=== PATIENT | male | born 1965 | race Hispanic/Latino ===

== ENCOUNTER → 2024-05-19 | Day surgery (SDC) | payer OTHER ==
[2024-05-12 11:14] LABS: ANION GAP 17.9 mmol/L (8-16); CALCIUM 9.7 mg/dL (8.4-10.2); CREATININE, SERUM 0.77 mg/dL (0.72-1.25); POTASSIUM 3.9 mmol/L (3.5-5.1)
[~2024-05-19] MED LIST: ATENOLOL50 MG PO; DEXAMETHASONE SOD PHOS INJ 4 MG/ML SDV ONE; FAMOTIDINE 20 MG/2 ML VIAL IV ONE; FENTANYL CITRATE/PF 100MCG/2 ML INJ ONE; FOLIC ACID0.4 MG PO; GLYCOPYRROLATE INJ 0.2 MG/ML VIAL ONE; JARDIANCE25 MG PO; KETAMINE 50MG/5ML SYR ONE; LIDOCAINE HCL 2% LOCAL INJ 5 ML SDV VIAL INJ ONE; METFORMIN HCL500 MG PO; MIDAZOLAM HCL 2 MG/2 ML VIAL ONE; NOVOLOG100 UNIT/1 SC; OMEPRAZOLE40 MG PO; ONDANSETRON HCL INJ 2MG/ML 2ML 2 MG/ML VIAL ONE; PROPOFOL IV EMULSION 10 MG/ML 20 ML VIAL ONE; ROCURONIUM BROMIDE 0 ML IV ONE; ROSUVASTATIN CA20 MG PO; TOUJEO MAX300 UNIT/1 SQ
[2024-05-19] MEDS: CEFAZOLIN SODIUM 2 GM ONE (12:38)
[2024-05-19] MEDS: LACTATED RINGER'S 1,000 ML ONE (12:38)
[2024-05-19] MEDS: HYDROCODONE/APAP 7.5MG-325MG 1 EA TAB ONE (15:42)
[2024-05-19 16:10] VITALS: BP 146/72; PULSE 88; RESP 17; O2SAT 95
== END | disposition home or self-care (01) ==
LOC: OR 12:26
PROVIDERS: ATTEND Specialist
DX: S76.111A Strain of right quadriceps muscle, fascia and tendon, initial encounter (principal); E11.9 Type 2 diabetes mellitus without complications; I10 Essential (primary) hypertension; E78.00 Pure hypercholesterolemia, unspecified; K21.9 Gastro-esophageal reflux disease without esophagitis; E66.01 Morbid (severe) obesity due to excess calories; W01.198A Fall on same level from slipping, tripping and stumbling with subsequent striking against other object, initial encounter; Z01.810 Encounter for preprocedural cardiovascular examination; Z01.812 Encounter for preprocedural laboratory examination; Z79.84 Long term (current) use of oral hypoglycemic drugs; Z79.4 Long term (current) use of insulin; Z79.1 Long term (current) use of non-steroidal anti-inflammatories (NSAID); Z79.899 Other long term (current) drug therapy; Z68.41 Body mass index [BMI] 40.0-44.9, adult
CPT/HCPCS: 27380; 36415; 80048; 93005; J0690; J1100; J2003; J2405; J2704; J3010; J7121; J2250